=== PATIENT | male | born 1970 | race Caucasian/White ===

== ENCOUNTER 2018-03-02 19:45 | Inpatient (IN) | payer OTHER ==
[2018-03-02] MEDS ORDERED: NITROGLYCERIN-D5W PMX 50 MG in DEXTROSE/WATER 1 250ML.BAG IV STA (19:53)
[2018-03-02] MEDS ORDERED: ASPIRIN 81 MG PO STA (19:53)
--- NOTE | 2018-03-02 19:56 | ED ---
General Adult HPI - General Chief complaint: Chest Pain Stated complaint: Chest Pain Time Seen by Provider: 03/02/18 19:49 Source: patient, EMS, RN notes reviewed Mode of arrival: EMS Limitations: no limitations - History of Present Illness Initial comments: Patient is a pleasant 47-year-old male presenting to the emergency department chest discomfort. Onset was less than an hour ago. Patient has a an ache or pressure in his chest with radiation towards left arm. No associated dyspnea. Mild nausea and diaphoresis. Patient does have a history of similar symptoms previously associated with 3 stents. Patient has had partial improvement with nitroglycerin. Patient did have aspirin prior to arrival. Patient presents from [facility] facility. Patient states he is there secondary to taking pain pills. - Related Data Home Medications Medication Instructions Recorded Confirmed Aspirin [Adult Low Dose Aspirin EC] 81 mg PO QAM 03/02/18 03/02/18 Allergies Allergy/AdvReac Type Severity Reaction Status Date / Time No Known Allergies Allergy Verified 03/02/18 20:19 Review of Systems ROS Statement: Those systems with pertinent positive or pertinent negative responses have been documented in the HPI. ROS Other: All systems not noted in ROS Statement are negative. Constitutional: Denies: fever Eyes: Denies: eye pain ENT: Denies: ear pain Respiratory: Denies: cough, dyspnea Cardiovascular: Reports: chest pain Endocrine: Denies: fatigue Gastrointestinal: Reports: nausea. Denies: abdominal pain Genitourinary: Denies: dysuria Musculoskeletal: Denies: back pain Skin: Denies: rash Neurological: Denies: weakness Past Medical History Past Medical History: Myocardial Infarction ([place]) Additional Past Medical History / Comment(s): previous heart attack, 3 stents in January 2016, mass in colon/bladder. History of Any Multi-Drug Resistant Organisms: None Reported Past Surgical History: Back Surgery Past Psychological History: Bipolar Smoking Status: Current every day smoker Past Alcohol Use History: None Reported Past Drug Use History: Opiates General Exam Limitations: no limitations General appearance: alert, in no apparent distress Head exam: Present: atraumatic Eye exam: Present: normal appearance, PERRL ENT exam: Present: normal oropharynx Neck exam: Present: normal inspection Respiratory exam: Present: normal lung sounds bilaterally. Absent: chest wall tenderness Cardiovascular Exam: Present: regular rate, normal rhythm Expanded Peripheral pulses: 2+: Radial (R), Radial (L), Dorsalis Pedis (R), Dorsalis Pedis (L) GI/Abdominal exam: Present: soft. Absent: tenderness Extremities exam: Present: normal inspection. Absent: pedal edema, calf tenderness Neurological exam: Present: alert Psychiatric exam: Present: normal affect, normal mood Skin exam: Present: normal color Course Vital Signs 03/02/18 03/02/18 03/02/18 19:46 20:04 20:22 Temperature 99.8 F H Pulse Rate 73 55 L Respiratory 18 18 18 Rate Blood Pressure 153/86 119/71 O2 Sat by Pulse 100 99 Oximetry 03/02/18 03/02/18 03/02/18 20:40 21:07 21:47 Temperature Pulse Rate 57 L 56 L 59 L Respiratory 18 18 18 Rate Blood Pressure 130/65 114/64 118/69 O2 Sat by Pulse 99 98 99 Oximetry EKG Findings - EKG Comments: EKG Findings:: Normal sinus rhythm 60. KS 136. QRS 88. QT 422. QTC 422. Normal axis. Normal QRS. No acute ST change. Medical Decision Making - Medical Decision Making Patient reevaluated and resting comfortably in bed. Symptoms near resolved following nitroglycerin. Patient updated on results and plan. Case was discussed in detail with Dr. Kearns, who will admit for hospital call. - Lab Data Result diagrams: 03/02/18 19:54 03/02/18 19:54 Lab Results 03/02/18 03/02/18 03/02/18 Range/Units 19:54 19:54 19:54 WBC 8.8 (3.8-10.6) k/uL RBC 4.66 (4.30-5.90) m/uL Hgb 14.3 (13.0-17.5) gm/dL Hct 42.9 (39.0-53.0) % MCV 92.0 (80.0-100.0) fL MCH 30.7 (25.0-35.0) pg MCHC 33.4 (31.0-37.0) g/dL RDW 12.2 (11.5-15.5) % Plt Count 218 (150-450) k/uL Neutrophils % 61 % Lymphocytes % 27 % Monocytes % 7 % Eosinophils % 4 % Basophils % 0 % Neutrophils # 5.3 (1.3-7.7) k/uL Lymphocytes # 2.4 (1.0-4.8) k/uL Monocytes # 0.6 (0-1.0) k/uL Eosinophils # 0.4 (0-0.7) k/uL Basophils # 0.0 (0-0.2) k/uL PT (9.0-12.0) sec INR (<1.2) APTT (22.0-30.0) sec Sodium 144 (137-145) mmol/L Potassium 4.3 (3.5-5.1) mmol/L Chloride 107 (98-107) mmol/L Carbon Dioxide 26 (22-30) mmol/L Anion Gap 11 mmol/L BUN 15 (9-20) mg/dL Creatinine 0.61 L (0.66-1.25) mg/dL Est GFR (CKD-EPI)AfAm >90 (>60 ml/min/1.73 sqM) Est GFR (CKD-EPI)NonAf >90 (>60 ml/min/1.73 sqM) Glucose 88 (74-99) mg/dL Calcium 9.3 (8.4-10.2) mg/dL Magnesium 2.0 (1.6-2.3) mg/dL Total Bilirubin 0.3 (0.2-1.3) mg/dL AST 19 (17-59) U/L ALT 26 (21-72) U/L Alkaline Phosphatase 49 (38-126) U/L Total Creatine Kinase 39 L (55-170) U/L CK-MB (CK-2) 0.4 (0.0-2.4) ng/mL CK-MB (CK-2) Rel Index 1.0 Troponin I <0.012 (0.000-0.034) ng/mL Total Protein 6.0 L (6.3-8.2) g/dL Albumin 3.6 (3.5-5.0) g/dL 03/02/18 Range/Units 19:54 WBC (3.8-10.6) k/uL RBC (4.30-5.90) m/uL Hgb (13.0-17.5) gm/dL Hct (39.0-53.0) % MCV (80.0-100.0) fL MCH (25.0-35.0) pg MCHC (31.0-37.0) g/dL RDW (11.5-15.5) % Plt Count (150-450) k/uL Neutrophils % % Lymphocytes % % Monocytes % % Eosinophils % % Basophils % % Neutrophils # (1.3-7.7) k/uL Lymphocytes # (1.0-4.8) k/uL Monocytes # (0-1.0) k/uL Eosinophils # (0-0.7) k/uL Basophils # (0-0.2) k/uL PT 10.4 (9.0-12.0) sec INR 1.1 (<1.2) APTT 24.9 (22.0-30.0) sec Sodium (137-145) mmol/L Potassium (3.5-5.1) mmol/L Chloride (98-107) mmol/L Carbon Dioxide (22-30) mmol/L Anion Gap mmol/L BUN (9-20) mg/dL Creatinine (0.66-1.25) mg/dL Est GFR (CKD-EPI)AfAm (>60 ml/min/1.73 sqM) Est GFR (CKD-EPI)NonAf (>60 ml/min/1.73 sqM) Glucose (74-99) mg/dL Calcium (8.4-10.2) mg/dL Magnesium (1.6-2.3) mg/dL Total Bilirubin (0.2-1.3) mg/dL AST (17-59) U/L ALT (21-72) U/L Alkaline Phosphatase (38-126) U/L Total Creatine Kinase (55-170) U/L CK-MB (CK-2) (0.0-2.4) ng/mL CK-MB (CK-2) Rel Index Troponin I (0.000-0.034) ng/mL Total Protein (6.3-8.2) g/dL Albumin (3.5-5.0) g/dL - Radiology Data Radiology results: image reviewed (Chest x-ray shows no acute process.) Critical Care Time Critical Care Time: Yes Total Critical Care Time: 31 Disposition Clinical Impression: Unstable angina pectoris Disposition: ADMITTED IP TO THIS HOSP Is patient prescribed a controlled substance at d/c from ED?: No Referrals: Miryam Arellano DO [Primary Care Provider] - 1-2 days Decision Time: 22:20
[2018-03-02 20:11] LABS: Basophils % (A) 0 %; Eosinophils # (A) 0.4 k/uL (0-0.7); Eosinophils % (A) 4 %; HCT 42.9 % (39.0-53.0); HGB 14.3 gm/dL (13.0-17.5); Lymphocytes # (A) 2.4 k/uL (1.0-4.8); Lymphocytes % (A) 27 %; MCH 30.7 pg (25.0-35.0); MCHC 33.4 g/dL (31.0-37.0); Mean Platelet Volume 7.6; Monocytes # (A) 0.6 k/uL (0-1.0); Monocytes % (A) 7 %; Neutrophils # (A) 5.3 k/uL (1.3-7.7); Neutrophils % (A) 61 %; Platelet Count 218 k/uL (150-450); RBC 4.66 m/uL (4.30-5.90); RDW 12.2 % (11.5-15.5); WBC 8.8 k/uL (3.8-10.6)
[2018-03-02 20:16] LABS: INR 1.1 (<1.2); Partial Thromboplastin Time 24.9 sec (22.0-30.0); Prothrombin Time 10.4 sec (9.0-12.0)
[2018-03-02 20:22] LABS: ALT 26 U/L (21-72); AST 19 U/L (17-59); Albumin 3.6 g/dL (3.5-5.0); Alkaline Phosphatase 49 U/L (38-126); Anion Gap 11 mmol/L; Blood Urea Nitrogen 15 mg/dL (9-20); Calcium 9.3 mg/dL (8.4-10.2); Carbon Dioxide 26 mmol/L (22-30); Chloride 107 mmol/L (98-107); Glucose 88 mg/dL (74-99); Potassium 4.3 mmol/L (3.5-5.1); Sodium 144 mmol/L (137-145); Total Bilirubin 0.3 mg/dL (0.2-1.3)
[2018-03-02 20:29] LABS: Creatine Kinase 39 U/L (55-170)
[2018-03-02 20:42] LABS: Creatine Kinase MB 0.4 ng/mL (0.0-2.4); Troponin I <0.012 ng/mL (0.000-0.034)
[2018-03-02] MEDS ORDERED: ACETAMINOPHEN TAB 500 MG TAB PO STA (21:07)
--- NOTE | 2018-03-02 21:08 | XR ---
EXAMINATION TYPE: XR chest 2V DATE OF EXAM: 03/02/2018 COMPARISON: NONE HISTORY: Chest pain TECHNIQUE: Frontal and lateral views of the chest are obtained. FINDINGS: Heart and mediastinum are normal. Lungs are clear of infiltrate. There is no pleural effus ion. There are chest leads. Bony thorax is intact. IMPRESSION: Normal chest
[2018-03-02] MEDS ORDERED: HEPARIN SODIUM,PORCINE 5,000 UNIT/ML 1 ML VIAL IV PRN (22:21)
[2018-03-02] MEDS ORDERED: HEPARIN SODIUM,PORCINE 5,000 UNIT/ML 1 ML VIAL IV ONE (22:21)
[2018-03-02] MEDS: HEPARIN SOD,PORK IN 0.45% NACL 25,000 UNIT in 0.45% NACL 1 500ML.BAG IV SCH (22:43)
[2018-03-03 00:49] VITALS: BMI 28.5
[2018-03-03 02:55] LABS: Creatine Kinase 31 U/L (55-170)
[2018-03-03 03:10] LABS: Creatine Kinase MB 0.4 ng/mL (0.0-2.4); Troponin I <0.012 ng/mL (0.000-0.034)
[2018-03-03] MEDS: NICOTINE 14MG/24HR PATCH TRANSDERM SCH (06:06)
[2018-03-03 08:36] LABS: Mean Platelet Volume 6.9; Platelet Count 206 k/uL (150-450)
[2018-03-03] MEDS ORDERED: ASPIRIN 325 MG TAB PO SCH (09:00)
[2018-03-03 09:09] LABS: Cholesterol 144 mg/dL (<200); HDL Cholesterol 34 mg/dL (40-60); LDL Cholesterol,Calculated 77 mg/dL (0-99); Triglycerides 163 mg/dL (<150)
[2018-03-03 09:22] LABS: Creatine Kinase 31 U/L (55-170)
[2018-03-03 09:34] LABS: Creatine Kinase MB 0.3 ng/mL (0.0-2.4); Troponin I <0.012 ng/mL (0.000-0.034)
--- NOTE | 2018-03-03 10:13 | P.CRDCN ---
History of Present Illness Consult date: 03/03/18 Requesting physician: Sen Kearns Consult reason: chest pain Chief complaint: Chest pain History of present illness: This is a 47-year-old gentleman with history of coronary artery disease and prior stent placements 3, hypertension, hyperlipidemia, nondiabetic , nicotine dependence, family history of premature coronary artery disease, who is currently at [place] for opiate use. He presents to the hospital with symptoms of a left sided chest pressure and heaviness with radiation into the left arm and into the jaw. Patient also had associated diaphoresis and shortness of breath. According to the patient, the symptoms remind him of what he had prior to his placement. He did say the symptoms subsided and again returned and for this reason he came to the emergency room for further evaluation. EKG on arrival here shows a normal sinus rhythm with no acute changes. Chest x-ray normal. Blood pressure 128/72 with a heart rate in the 50s, 96% on room air. CBC normal, sodium 144, potassium 4.3, BUN 15, creatinine 0.6. Mag 2.0. At the time of my examination this morning he is currently experiencing mild discomfort however much improved from his admission here. He is on IV heparin, IV nitroglycerin. Past Medical History Past Medical History: Coronary Artery Disease (CAD), Chest Pain / Angina, Hyperlipidemia, Hypertension, Myocardial Infarction ([place]) Additional Past Medical History / Comment(s): previous heart attack, 3 stents in January 2016, mass in colon/bladder, multiple broken bones; jaw, shoulder, etc Last Myocardial Infarction Date:: 2015 History of Any Multi-Drug Resistant Organisms: None Reported Past Surgical History: Back Surgery, Heart Catheterization With Stent, Orthopedic Surgery Additional Past Surgical History / Comment(s): PT. HAD AN EXPLORATORY LAPAROTOMY IN 2016, BILATERAL KNEE REPAIRS Past Anesthesia/Blood Transfusion Reactions: No Reported Reaction Date of Last Stent Placement:: 2015 Past Psychological History: Bipolar Smoking Status: Current every day smoker Past Alcohol Use History: Occasional Past Drug Use History: Cocaine, Heroin, IV Drug Use, Opiates, Prescription Drug Abuse Additional Drug Use History / Comment(s): PT. IS CURRENTLY AT [facility] FOR REHAB, PT. STATES HE HAS HAD REOCCURING ISSUES WITH DRUG ADDICTION AND RECENTLY RELAPSED AFTER BEING CLEAN FOR ABOUT TWO YEARS - Past Family History Mother Family Medical History: Coronary Artery Disease (CAD) Father Additional Family Medical History / Comment(s): ETOH Medications and Allergies Home Medications Medication Instructions Recorded Confirmed Type Aspirin [Adult Low Dose Aspirin EC] 81 mg PO QAM 03/02/18 03/02/18 History Allergies Allergy/AdvReac Type Severity Reaction Status Date / Time No Known Allergies Allergy Verified 03/02/18 20:19 Physical Exam Vitals: Vital Signs Temp Pulse Pulse Resp BP BP Pulse Ox 03/03/18 07:53 97.5 F L 56 L 16 128/73 96 03/03/18 03:45 98.8 F 57 L 18 126/63 99 03/02/18 23:30 98.4 F 63 18 144/80 96 03/02/18 23:10 98.0 F 63 18 144/80 96 03/02/18 22:48 98.3 F 51 L 18 121/63 97 03/02/18 21:47 59 L 18 118/69 99 03/02/18 21:07 56 L 18 114/64 98 03/02/18 20:40 57 L 18 130/65 99 03/02/18 20:22 55 L 18 119/71 99 03/02/18 20:04 18 03/02/18 19:46 99.8 F H 73 18 153/86 100 Intake and Output 03/02/18 03/03/18 03/03/18 22:59 06:59 14:59 Intake Total 0.95 135.198 0 Balance 0.95 135.198 0 Intake: Intake, IV Titration 0.95 135.198 Amount Heparin Sod,Pork in 0.45% 135.198 NaCl 25,000 unit In 0.45 % NaCl 1 500ml.bag @ 11. 07 UNITS/KG/HR 19.98 mls/ hr IV .Q24H MARYELLEN Rx#: [id number] Nitroglycerin-D5w Pmx 50 0.95 mg In Dextrose/Water 1 250ml.bag @ 10 MCG/MIN 3 mls/hr IV .Q24H STA Rx#: [id number] Oral 0 Other: Voiding Method Toilet # Voids 3 Weight 90.265 kg 92.9 kg PHYSICAL EXAMINATION: HEENT: Head is atraumatic, normocephalic. Pupils equal, round. Neck is supple. There is no elevated jugular venous pressure. HEART EXAMINATION: Heart S1, S2 normal. No murmur or gallop heard. CHEST EXAMINATION: Lungs are clear to auscultation and precussion. No chest wall tenderness is noted on palpation or with deep breathing. ABDOMEN: Soft, nontender. Bowel sounds are heard. No organomegaly noted. EXTREMITIES: 2+ peripheral pulses with no evidence of peripheral edema and no calf tenderness noted. NEUROLOGIC patient is awake, alert and oriented -3. . Results 03/03/18 08:17 03/02/18 19:54 Cardiac Enzymes 03/02/18 03/02/18 03/03/18 Range/Units 19:54 19:54 01:43 AST 19 (17-59) U/L CK-MB (CK-2) 0.4 0.4 (0.0-2.4) ng/mL Troponin I <0.012 <0.012 (0.000-0.034) ng/mL 03/03/18 Range/Units 08:17 AST (17-59) U/L CK-MB (CK-2) 0.3 (0.0-2.4) ng/mL Troponin I <0.012 (0.000-0.034) ng/mL Coagulation 03/02/18 03/03/18 Range/Units 19:54 04:12 PT 10.4 (9.0-12.0) sec APTT 24.9 31.8 H (22.0-30.0) sec Lipids 03/03/18 Range/Units 08:17 Triglycerides 163 H (<150) mg/dL Cholesterol 144 (<200) mg/dL HDL Cholesterol 34 L (40-60) mg/dL CBC 03/02/18 03/03/18 Range/Units 19:54 08:17 WBC 8.8 (3.8-10.6) k/uL RBC 4.66 (4.30-5.90) m/uL Hgb 14.3 (13.0-17.5) gm/dL Hct 42.9 (39.0-53.0) % Plt Count 218 206 (150-450) k/uL Comprehensive Metabolic Panel 03/02/18 Range/Units 19:54 Sodium 144 (137-145) mmol/L Potassium 4.3 (3.5-5.1) mmol/L Chloride 107 (98-107) mmol/L Carbon Dioxide 26 (22-30) mmol/L BUN 15 (9-20) mg/dL Creatinine 0.61 L (0.66-1.25) mg/dL Glucose 88 (74-99) mg/dL Calcium 9.3 (8.4-10.2) mg/dL AST 19 (17-59) U/L ALT 26 (21-72) U/L Alkaline Phosphatase 49 (38-126) U/L Total Protein 6.0 L (6.3-8.2) g/dL Albumin 3.6 (3.5-5.0) g/dL Current Medications Generic Name Dose Route Start Last Admin Trade Name Freq PRN Reason Stop Dose Admin Aspirin 325 mg 03/03/18 09:00 Aspirin PO DAILY MARYELLEN Heparin Sodium (Porcine) 0 unit 03/02/18 22:21 Heparin IV Q6HR PRN Low PTT Protocol Nitroglycerin/Dextrose 50 mg/ 250 mls @ 3 mls/hr 03/02/18 19:53 03/02/18 20: 40 IV Solution IV 03/03/18 19:52 15 mcg/min .Q24H STA 4.5 mls/hr Protocol Titration 10 MCG/MIN Heparin Sodium/Sodium Chloride 500 mls @ 19.98 mls/hr 03/02/18 22:30 05:29 25,000 unit/ Sodium Chloride IV 14 units/kg/hr .Q24H MARYELLEN 25.27 mls/hr Protocol Titration 11.07 UNITS/KG/HR Nicotine 1 patch 03/03/18 09:00 03/03/18 06:06 Habitrol 14mg/24hr Patch TRANSDERM 1 patch DAILY MARYELLEN Administration Sodium Chloride 10 ml 03/03/18 09:00 03/03/18 06:07 Saline Flush IV Not Given BID MARYELLEN Intake and Output 03/02/18 03/03/18 03/03/18 22:59 06:59 14:59 Intake Total 0.95 135.198 0 Balance 0.95 135.198 0 Intake: Intake, IV Titration 0.95 135.198 Amount Heparin Sod,Pork in 0.45% 135.198 NaCl 25,000 unit In 0.45 % NaCl 1 500ml.bag @ 11. 07 UNITS/KG/HR 19.98 mls/ hr IV .Q24H MARYELLEN Rx#: [id number] Nitroglycerin-D5w Pmx 50 0.95 mg In Dextrose/Water 1 250ml.bag @ 10 MCG/MIN 3 mls/hr IV .Q24H STA Rx#: [id number] Oral 0 Other: Voiding Method Toilet # Voids 3 Weight 90.265 kg 92.9 kg 03/03/18 08:17 03/02/18 19:54 EKG Interpretations (text) EKG shows normal sinus rhythm with no acute changes. Assessment and Plan Plan: Assessment and plan #1 symptoms of left-sided chest discomfort with radiation into the left arm, associated shortness of breath and diaphoresis suggestive of possible angina. Troponins 3 with a negative. EKG shows normal sinus rhythm with no acute changes. #2 known history of coronary artery disease with prior stent placements 3 in 2016 at [facility] #3 nicotine dependence #4 hyperlipidemia, Patient states he stopped taking his statin 3-6 months ago #5 hypertension, not currently on any antihypertensives #6 family history of premature coronary artery disease Plan We will obtain an echocardiogram with Doppler study. We will also request records from [facility] regarding the patient's prior stenting procedures. Start the patient on Lipitor 80 mg now and daily, continue aspirin, heparin, IV nitroglycerin. Further recommendations to follow. DNP note has been reviewed, I agree with a documented findings and plan of care. Patient was seen and examined.
[2018-03-03] MEDS: ATORVASTATIN 80 MG TAB PO SCH (10:38)
--- NOTE | 2018-03-03 11:04 | P.PN ---
Progress Note - Text is an addendum to the dictated cardiology consultation. The patient presents with symptoms of chest discomfort with left arm radiation. It reminds him of the symptoms he had about 2 years ago at the time of stenting done in [place]. At that time he received 3 stents on 2 procedures. The detail of his intervention is unclear. According to him he has done well since the intervention until recently. He felt some palpitations, dizziness and dyspnea. He has no history of PND orthopnea or peripheral edema. He has a prior history of opiates abuse and had a relapse recently and he was in rehab. his physical examination revealed no evidence of lung congestion, he is in sinus mechanism and there is no peripheral edema. His EKG shows sinus mechanism with no acute changes. His troponin are normal. his presentation is suggestive of unstable angina. I will obtain the prior workup and proceed with cardiac catheterization to further assess his status and guide his treatment. The plan and the risks were discussed with the patient was informed standing and agreement. Thank you for this consult we will follow with you.
[2018-03-03] MEDS ORDERED: SODIUM CHLORIDE 0.9% 1,000 ML in EMPTY BAG 1 BAG IV ONE (11:05)
[2018-03-03] MEDS ORDERED: ALPRAZolam 0.5 MG TAB PO PRN (11:05)
[2018-03-03] MEDS ORDERED: ASPIRIN 325 MG TAB PO STA (11:05)
[2018-03-03] MEDS ORDERED: ALPRAZolam 0.25 MG TAB PO PRN (11:05)
[2018-03-03] MEDS ORDERED: NITROGLYCERIN SL TABS 0.4 MG TAB SUBLINGUAL PRN (11:05)
[2018-03-03] MEDS ORDERED: ATORVASTATIN 80 MG TAB PO STA (11:09)
--- NOTE | 2018-03-03 12:38 | HP ---
HISTORY AND PHYSICAL CHIEF COMPLAINT: A 47-year-old white male with chest pain. HISTORY OF PRESENT ILLNESS: This is a 47-year-old white male with chest pain with coronary artery disease and stent placement x3, hypertension, dyslipidemia, nicotine addiction, family history of premature heart disease, had stents placed. He is currently at [facility] for opioid abuse. He had stents placed 2 years ago. He has been noncompliant on all his cardiac medicines for 6 months. Had heaviness in the left arm and left jaw. He came into the ER for further evaluation. Labs were reviewed. Oxygen levels were reviewed. Cardiology saw him. He is on IV heparin, nitroglycerin. Will do a heart catheterization in the morning. PAST MEDICAL HISTORY: Coronary artery disease, chest pain, angina, dyslipidemia, hypertension, myocardial infarction, history of alcoholism and opiate abuse. He is at [facility] for rehab. He has 3 stents in unknown arteries January 2016. Multiple broken bones, jaw, shoulder, etc. PAST SURGICAL HISTORY: Back surgery, heart catheterization with stents, orthopedic surgery, exploratory laparotomy October 2017, bilateral knee repairs. SOCIAL HISTORY: He has a history of bipolar. Current everyday smoker. Past drug history of cocaine, heroin, opiates, prescription drug abuse. FAMILY HISTORY: Mother with coronary artery disease. Father with alcohol. HOME MEDICINES: Aspirin. ALLERGIES: Negative. PHYSICAL EXAM: Temp 97 to 98, pulse 50s to 60s, respiratory rate 16 to 18, blood pressure 120s to 130s over 60s to 70s, O2 saturation 96% to 99% on room air. HEENT: Normocephalic, atraumatic. Pupils equal, round, react to light and accommodation. HEART: S1, S2. ABDOMEN: Soft. EXTREMITIES: No cyanosis, clubbing, edema. NEUROLOGIC: Alert and oriented x3. OPHTHALMOLOGIC: Pupils equal, round, reactive to light and accommodation. Sodium 144, potassium 4.3, BUN 15, creatinine 0.6, platelet count 205. White count 8.8, hemoglobin 14.3, creatinine 0.61. ASSESSMENT: 1. Atypical chest pain. 2. History of coronary artery disease, rule out myocardial infarction. Heart catheterization scheduled for in the morning. 3. Nicotine addiction. 4. Dyslipidemia. 5. Hypertension. Echo with carotid are ordered. Will get prior cardiac history. Patient cannot take Lipitor 80 due to severe myalgias. Continue aspirin, heparin, nitroglycerin. MMODL / IJN: [id number] /
[2018-03-03] MEDS: HEPARIN SOD,PORK IN 0.45% NACL 25,000 UNIT in 0.45% NACL 1 500ML.BAG IV SCH (16:45)
[2018-03-04] MEDS ORDERED: ASPIRIN 325 MG TAB PO STA (05:36)
[2018-03-04 06:05] LABS: Platelet Count 198 k/uL (150-450)
[2018-03-04] MEDS: ASPIRIN 81 MG PO SCH (06:15)
[2018-03-04] MEDS: NICOTINE 14MG/24HR PATCH TRANSDERM SCH (06:17)
[2018-03-04] MEDS: ATORVASTATIN 80 MG TAB PO SCH (06:17)
--- NOTE | 2018-03-04 10:11 | ECHOF ---
Referral Reason:cad MEASUREMENTS -------- HEIGHT: 152.4 cm WEIGHT: 92.5 kg BP: RVIDd: 3.3 cm (< 3.3) IVSd: 1.2 cm (0.6 - 1.1) LVIDd: 5.0 cm (3.9 - 5.3) LVPWd: 1.7 cm (0.6 - 1.1) IVSs: 1.8 cm LVIDs: 3.6 cm LVPWs: 2.1 cm LA Diam: 4.0 cm (2.7 - 3.8) LAESV Index (A-L): 37.40 ml/m Ao Diam: 3.3 cm (2.0 - 3.7) AV Cusp: 2.0 cm (1.5 - 2.6) LA Diam: 4.0 cm (2.7 - 3.8) MV EXCURSION: 23.232 mm (> 18.000) MV EF SLOPE: 133 mm/s (70 - 150) EPSS: 0.4 cm MV E Sourav: 0.56 m/s MV DecT: 231 ms MV A Sourav: 0.66 m/s MV E/A Ratio: 0.85 RAP: 5.00 mmHg FINDINGS -------- Sinus rhythm. This was a technically good study. The left ventricular size is normal. There is mild concentric left ventricular hypertrophy. Overa ll left ventricular systolic function is normal with, an EF between 55 - 60 %. The right ventricle is normal in size. The left atrial size is normal. The right atrial size is normal. The aortic valve is trileaflet, and appears structurally normal. No aortic stenosis or regurgitation. Mild mitral regurgitation is present. Mild tricuspid regurgitation present. There is no evidence of pulmonary hypertension. The right v entricular systolic pressure, as measured by Doppler, is {RVSP}. Trace/mild (physiologic) pulmonic regurgitation. The aortic root size is normal. There is no pericardial effusion. CONCLUSIONS -------- 1. The left ventricular size is normal. 2. There is mild concentric left ventricular hypertrophy. 3. Overall left ventricular systolic function is normal with, an EF between 55 - 60 %. 4. The aortic valve is trileaflet, and appears structurally normal. No aortic stenosis or regurgitati on. 5. Mild mitral regurgitation is present. 6. Mild tricuspid regurgitation present. 7. There is no evidence of pulmonary hypertension. 8. The right ventricular systolic pressure, as measured by Doppler, is {RVSP}. 9. Trace/mild (physiologic) pulmonic regurgitation. 10. The aortic root size is normal. 11. There is no pericardial effusion. LABOR RELATIONS OR PERSONNEL NEGOTIATOR: Esther Mtz RDCS
[2018-03-04] MEDS ORDERED: fentaNYL (PF) 50 MCG/ML 2 ML AMP ONE (12:37)
[2018-03-04] MEDS ORDERED: VERAPAMIL 2.5 MG/ML 2 ML AMP ONE (12:37)
[2018-03-04] MEDS ORDERED: LIDOCAINE 2% INJ 20 MG/ML (20 ML MDV) ONE (12:37)
[2018-03-04] MEDS ORDERED: MIDAZOLAM 2 MG/2 ML VIAL ONE (12:37)
[2018-03-04] MEDS ORDERED: HEPARIN SODIUM 1,000 UN/ML (10ML VL) ONE (12:37)
[2018-03-04] MEDS ORDERED: fentaNYL (PF) 50 MCG/ML 2 ML AMP IV ONE (12:56)
[2018-03-04] MEDS ORDERED: IV FLUID CONTINUATION 1,000 ML IV ONE (12:57)
[2018-03-04] MEDS: MIDAZOLAM 2 MG/2 ML VIAL IV ONE ×2 (13:00→13:04)
[2018-03-04] MEDS ORDERED: LIDOCAINE 2% INJ 20 MG/ML SQ ONE (13:00)
[2018-03-04] MEDS ORDERED: SODIUM CHLORIDE 0.9% 1,000 ML IV ONE (13:02)
[2018-03-04] MEDS: VERAPAMIL SYRINGE (5 MG/10 ML) INTRAARTER ONE ×2 (13:04→13:19)
[2018-03-04] MEDS ORDERED: MORPHINE SULF 5MG/10ML VL ONE (13:17)
[2018-03-04] MEDS ORDERED: MORPHINE SULF 5MG/10ML VL IV ONE (13:18)
[2018-03-04] MEDS ORDERED: HEPARIN SODIUM 1,000 UN/ML (10ML VL) IV ONE (13:23)
[2018-03-04] MEDS ORDERED: IOPAMIDOL-370 125ML BTL INJ ONE (13:25)
[2018-03-04] MEDS ORDERED: RX INFO: IV CONTRAST WAS GIVEN 1 EACH MISC MISCELLANE PRN (13:32)
[2018-03-04] MEDS ORDERED: SODIUM CHLORIDE 0.9% 1,000 ML IV SCH (13:45)
--- NOTE | 2018-03-04 14:45 | CC ---
CARDIAC CATHETERIZATION REPORT Mr. Brown is a 47-year-old male who was admitted to the hospital with symptoms of chest discomfort. He had a prior history of percutaneous revascularization performed [facility] with stenting of the left circumflex and the right coronary artery. He started to complain of chest discomfort, reminding him of the symptoms he had before with persistent recurrent symptoms. His cardiac enzymes and EKG did not show any acute changes, but because of the apparent symptoms and the persistent recurrence apparent, recommendation made regarding cardiac catheterization. The procedures, risks and complications were discussed with the patient who is in full understanding and agreement. PROCEDURE: Patient was brought to the [facility] in fasting semi-sedated state after receiving fentanyl and Benadryl and achieving moderate conscious sedated state. Using Xylocaine anesthesia and Seldinger technique, a 6-Gu[place] sheath was introduced in the right radial artery. Selective right femoral angiography performed using 5-[place] 3.5 bend right Raiza catheter, attempt to cannulate the left main using a 5-[place] 3.5 bend left Raiza and a Hector catheter 6-[place]atemalan were unsuccessful. Subsequently, it was cannulated using an EBU 3.75 guiding catheter. Multiple views of the coronary artery including hemiaxial views were obtained. Following that, the left ventricular end- diastolic pressure was calculated. Following that, catheter and sheaths were removed. Hemostasis was obtained with deployment of a TR band. There was no immediate complication. Patient is returned to his room in stable condition. There was no immediate complication. Of note, the patient received 5000 units of intravenous heparin as well as intra-arterial verapamil. FINDINGS: 1. LEFT MAIN: This is a large-sized vessel bifurcating into left circumflex, left anterior descending artery. The left main coronary artery has no evidence of high- grade stenosis. 2. LEFT ANTERIOR DESCENDING ARTERY: This is a large-sized vessel, reaching toward the apex with a wraparound apex segment. The left anterior descending artery has mild plaque in the mid to distal segment 10% to 20% without any evidence of high-grade stenosis. 3. LEFT CIRCUMFLEX: This is a large nondominant vessel, giving rise to 2 obtuse marginal branches. The first obtuse marginal branch which is the stented branch has no evidence of restenosis. There is intimal disease in the second branch of 20%-30% throughout its course without any discrete lesion. 4. RIGHT CORONARY ARTERY: This is a large dominant vessel bifurcating into PDA and posterolateral single branches. The mid segment and the proximal stented has no evidence of in-stent restenosis. Distal to the stent, there is a plaque of 30% to 40%. The rest of the vessel has no high-grade stenosis. 5. LEFT VENTRICULOGRAM: Left ventriculogram is not performed. 6. HEMODYNAMICS: There was no gradient across the aortic valve. The left ventricle end-diastolic pressure was 20 to 24 mmHg. CONCLUSION: 1. Mild disease involving the left circumflex, right coronary artery and the left anterior descending artery. 2. No evidence of restenosis of the prior stented segment. RECOMMENDATION: In view of finding anatomy, I have recommended to continue medical therapy with aggressive risk factor modifications being initiated. Those findings and recommendation were discussed with the patient and his family who are in full understanding and agreement. Duration of the procedure, 27 minutes. CHICHO / JONO: [id number] /
--- NOTE | 2018-03-04 22:28 | PN ---
PROGRESS NOTE SUBJECTIVE: 47-year-old white male had to have a heart catheterization today. Still having some anterior chest pain. CARDIOVASCULAR: S1, S2. Lungs transmitted upper air sounds, hematology negative Homans. Psych: Fair mood and affect. ASSESSMENT: 1. Coronary artery disease, atypical chest pain, suspect angina. 2. Anxiety. 3. Polysubstance abuse. PLAN: Await for heart catheterization. Risk factor modifications discussed with him. Please see further orders. MMODL / IJN: [id number] /
[2018-03-04] MEDS ORDERED: TOBRAMYCIN 0.3% OPHTH DROPS 5 ML BTL RIGHT EYE PRN (23:50)
[2018-03-05] MEDS ORDERED: TOBRAMYCIN 0.3% OPHTH DROPS 5 ML BTL RIGHT EYE SCH
[2018-03-05] MEDS: NICOTINE 14MG/24HR PATCH TRANSDERM SCH (06:26)
[2018-03-05 06:51] LABS: Platelet Count 219 k/uL (150-450)
[2018-03-05 08:22] VITALS: TEMP 98.2
[2018-03-05] MEDS: ASPIRIN 81 MG PO SCH (08:23)
[2018-03-05] MEDS: ATORVASTATIN 80 MG TAB PO SCH (08:24)
[2018-03-05] MEDS ORDERED: ACETAMINOPHEN TAB 325 MG TAB PO PRN (10:28)
[2018-03-05 11:00] VITALS: BP 120/71; PULSE 70; RESP 16
--- NOTE | 2018-03-05 11:14 | PN ---
PROGRESS NOTE Mr. Brown is a 47-year-old male who presented with symptoms of chest discomfort with no evidence of EKG changes or enzymatic changes, underwent cardiac catheterization yesterday, revealed no evidence of in-stent restenosis. He is feeling well today. He has a vague discomfort, but no chest pain. No dizziness. No palpitation. No nausea. He continues to be on aspirin once a day, Lipitor 80 mg daily, Nitro patch. PHYSICAL EXAMINATION: Blood pressure 160/70 with a heart rate in the 70s. LUNGS: Clear. HEART: Regular rate and rhythm, S1, S2. No S3. No rub. ABDOMEN: Soft, nontender. Right radial pulse is intact. EXTREMITIES: No edema. IMPRESSION: 1. Chest discomfort with no evidence of progression of disease. 2. Status post stenting of the right coronary artery and left circumflex patent. 3. History of chronic tobacco use. 4. Prior history of drug abuse. RECOMMENDATION: From the cardiac standpoint, he is stable. He should be able to be discharged home and follow as an outpatient with Dr. Azar. MMODL / IJN: [id number] /
== END 2018-03-05 12:06 | disposition home or self-care (01) | DRG 287 ==
LOC: EC 19:45 → 6SEL 22:21
PROVIDERS: ADMIT Family Medicine; ATTEND Family Medicine
PROC: B2111ZZ Fluoroscopy of Multiple Coronary Arteries using Low Osmolar Contrast (ICD-10-PCS; 2018-03-04)
PROC: 4A023N7 Measurement of Cardiac Sampling and Pressure, Left Heart, Percutaneous Approach (ICD-10-PCS; principal; 2018-03-04 12:41)
DX: R07.9 Chest pain, unspecified (principal); E78.5 Hyperlipidemia, unspecified; I25.10 Atherosclerotic heart disease of native coronary artery without angina pectoris; T46.6X6A Underdosing of antihyperlipidemic and antiarteriosclerotic drugs, initial encounter; I25.2 Old myocardial infarction; F17.200 Nicotine dependence, unspecified, uncomplicated; F41.9 Anxiety disorder, unspecified; I10 Essential (primary) hypertension; F19.10 Other psychoactive substance abuse, uncomplicated; F11.10 Opioid abuse, uncomplicated; Z95.5 Presence of coronary angioplasty implant and graft; Z79.82 Long term (current) use of aspirin; Z91.14 Patient's other noncompliance with medication regimen; Z82.49 Family history of ischemic heart disease and other diseases of the circulatory system; Z86.59 Personal history of other mental and behavioral disorders
CPT/HCPCS: 36415; 71046; 80053; 80061; 82550; 82553; 83735; 84484; 85025; 85049; 85610; 85730; 93005; 93306; 93458; 96365; 96366; 96375; 99291